=== PATIENT | male | born 1955 | race Caucasian/White ===

== ENCOUNTER → 2020-03-11 | Outpatient (CLI) | payer OTHER, MEDICARE ==
[~2020-03-11] MED LIST: ALDACTONE25 MG PO; ASPIR 8181 MG PO; COREG25 MG PO; LISINOPRIL20 MG PO; PRAVACHOL20 MG PO
== END ==
LOC: SJCVC 12:43
PROVIDERS: ATTEND Internal Medicine
DX: Z45.02 Encounter for adjustment and management of automatic implantable cardiac defibrillator (principal); R94.31 Abnormal electrocardiogram [ECG] [EKG]; I49.1 Atrial premature depolarization; I42.9 Cardiomyopathy, unspecified; I46.9 Cardiac arrest, cause unspecified; E78.5 Hyperlipidemia, unspecified; Z95.810 Presence of automatic (implantable) cardiac defibrillator; Z79.899 Other long term (current) drug therapy

== ENCOUNTER 2020-06-13 15:46 | Inpatient (IN) | payer OTHER, MEDICARE ==
[~2020-06-13] VITALS: Ht 170.2 cm; Wt 78.0 kg
--- NOTE | ~2020-06-13 | P ---
[facility] [place] [address] PROCEDURE REPORT Name: DANE LORENZO Room #: 217-P [facility] IN M.R.#: [id number] Admission: 06/13/20 Attend Phys: Cliff Santos Dae Discharge: 06/14/20 Date of : 55 Report #: [id number] THIS REPORT FOR: cc: Rolando Stahl MD, Samuel D. MD [facility] no [facility] ~ DATE OF SERVICE: 06/14/2020 ICD GENERATOR EXCHANGE PREOPERATIVE DIAGNOSIS: Premature Bi-V ICD battery depletion. POSTOPERATIVE DIAGNOSIS: Premature Bi-V ICD battery depletion. HISTORY: The patient is a 65-year-old with a history of nonischemic cardiomyopathy, left bundle-branch block and prior cardiac arrest, status post biventricular ICD implantation. We recently received an alert that he was having premature battery depletion on a known [employer] ICD with history of battery issues. He is here for ICD generator exchange. ____ found to be functioning normally and was placed in the pocket. Pocket was irrigated with vancomycin. Pocket was closed in 3 layers. Surgical glue was placed to outer skin layer. The patient awoke neurologically and hemodynamically intact. No complications and no significant bleeding. The explanted device that was malfunctioned was a [employer], model #15307K, serial #[id number]. Implant date was 10/25/2014. The newly implanted device was a [employer] Un[employer] Assura, model #877232F, serial #[id number]. Atrial lead was a [employer] 83787W, 52 cm, serial #[id number], implanted on 09/24/2018. RV lead was a [employer] Durata, model #7120, serial #[id number], implanted on 09/24/2008 and the LV lead was a [employer], model #1156, 86 cm, serial #[id number], implanted on 09/24/2008. Atrial lead demonstrated a P-wave of 3.7 millivolts, pacing impedance of 410 ohms and a pacing threshold of 0.75 volts at 0.5 milliseconds. RV lead demonstrated R waves of 8 millivolts, pacing impedance of 410 ohms and a pacing threshold of 1 volt at 0.5 milliseconds. LV lead demonstrated a pacing impedance of 490 ohms and a pacing threshold of 0.75 volts at 0.5 milliseconds. The device was programmed to the DDD 60-130 mode. The VT monitor zone was set for 160-180, VT zone was set for 180-215 and the VF zone was greater than 215 beats per minute and the VT zone, patient received 3 rounds of ATP followed by max output shocks. VF zone received ATP while charging followed by max output shocks. CONCLUSIONS: 1. Successful Bi-V ICD generator exchange. [facility] [address] [place] [address] PROCEDURE REPORT Name: DANE LORENZO PATI Room #: 217-P [facility] IN M.R.#: [id number] Admission: 06/13/20 Attend Phys: Cliff Pearl Discharge: 06/14/20 Date of : 55 Report #: [id number] 2. Satisfactory atrial, right ventricular and left ventricular pacing and sensing thresholds. By: 1134 [id number] Dax Summers MD /nt
[2020-06-13 15:54] VITALS: BP 136/70
[2020-06-13 16:21] LABS: ABSOLUTE NEUTROPHILS 4.5 thou/uL (1.4-8.2); BASOPHILS 0.9 % (0.0-2.0); EOSINOPHILS 1.8 % (0.0-3.0); HEMATOCRIT 45.1 % (42.0-52.0); HEMOGLOBIN 15.4 gm/dL (14.0-18.0); MCH 32.6 pg (26.0-34.0); MCV 95.7 fL (80.0-100.0); MONOCYTES 8.2 % (1.0-8.0); PLATELET COUNT 235 thou/uL (150-400); POLYS 64.1 % (36.0-66.0); RBC 4.72 mil/uL (4.50-6.00); RDW 12.6 % (10.5-14.5); WBC 7.1 thou/uL (4.0-11.0)
[2020-06-13 16:29] LABS: CALCIUM 8.8 mg/dL (8.5-10.1); CREATININE 1.1 mg/dL (0.7-1.3); POTASSIUM 4.3 mmol/L (3.5-5.1)
[2020-06-13 16:34] LABS: APTT 24.5 Seconds (24.5-32.8); PROTIME 10.2 Seconds (9.3-11.4)
[2020-06-13 16:36] LABS: ALBUMIN 4.1 g/dL (3.4-5.0); TOTAL BILIRUBIN 0.5 mg/dL (0.2-1.0); TOTAL PROTEIN 7.4 g/dL (6.4-8.2)
[2020-06-13 17:11] VITALS: BP 136/70
[2020-06-13 18:00] VITALS: BP 130/62
[2020-06-13 18:25] VITALS: BP 144/66
--- NOTE | 2020-06-13 18:37 | NUR ---
PT RECEIVED FROM ER TO ROOM 217 VIA AT 1805. PT SITTING IN CHAIR WITH NO DIFFICULTY. CONTINUOUS CARDIAC MONITORING INITIATED. VS TAKEN AND NOTED. PT STATES HE IS HERE BECAUSE HIS PACEMAKER BATTERY IS COMPLETELY AND IT NEEDS TO BE CHANGED. PT DENIES ANY DISCOMFORT OR PROBLEMS AT THIS TIME.
[2020-06-13 23:24] VITALS: BP 111/56
--- NOTE | 2020-06-14 03:26 | NUR ---
CARE ASSUMED 1900. PT ALERT AND ORIENTED , VITALS STABLE. DENIES CHEST DISCOMFORT NAUSEA OR VOMITING. ADMISSION COMPLETED, AND CONSENT FORMS SIGNED. NPO SINCE MIDNIGHT. PT IS SR, 1AVB w BBB, TO SB INTO 40s. DENIES ANY LIGHT HEADEDED OR SYNCOPE LIKE EPISIDE. BUT RESTING COMFORTABLE AND PLAN TO HAVE AICD BATTERY REPLACED TODAY. WILL CONTINUE TO MONITOR AND FOLLOW POC.
[2020-06-14 05:21] VITALS: BP 133/73
--- NOTE | 2020-06-14 07:16 | EKG ---
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: TESSIE : 1955 Requested By: Lewis Alexandra Order Number: [id number] MD: Chun Negro Measurements Intervals Napoleon Rate: 70 P: 49 OR: 187 QRS: -74 QRSD: 151 T: 68 QT: 444 QTc: 480 Interpretive Statements Sinus rhythm LBBB Left ventricular hypertrophy Compared to ECG 09/25/2008 08:15:03 Intraventricular conduction delay now present Ventricular-paced complex(es) or rhythm no longer present Electronically Signed On 06-14-2020 7:15:54 [facility] by Chun Negro [email or web address] <ELECTRONICALLY SIGNED> By: Chun Negro MD, [facility] 06/14/20 0715 1601 1601 Chun Negro MD, [facility] /EPI
[2020-06-14 08:20] VITALS: BP 143/74
--- NOTE | 2020-06-14 09:49 | NUR ---
PT. 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 STABLE FOR TRANSFER DENIED ANY PAIN, NO SOB. 1ST DEGREE AVB WITH BBB AND SB ALL AM.
[2020-06-14 14:19] VITALS: BP 143/74
== END 2020-06-14 15:44 | disposition home or self-care (01) | DRG 245 ==
LOC: ER 15:46 → EROBS 16:49 → 2N 16:49
PROVIDERS: Emergency Medicine; ADMIT Hospitalist; ATTEND Hospitalist
PROC: 0JPT0PZ Removal of Cardiac Rhythm Related Device from Trunk Subcutaneous Tissue and Fascia, Open Approach (ICD-10-PCS; principal; 2020-06-14)
PROC: 0JH608Z Insertion of Defibrillator Generator into Chest Subcutaneous Tissue and Fascia, Open Approach (ICD-10-PCS; principal; 2020-06-14)
DX: T82.111A Breakdown (mechanical) of cardiac pulse generator (battery), initial encounter (principal); I42.8 Other cardiomyopathies; I10 Essential (primary) hypertension; E78.5 Hyperlipidemia, unspecified; Z20.822 Contact with and (suspected) exposure to COVID-19; Z95.0 Presence of cardiac pacemaker; Z79.82 Long term (current) use of aspirin; Z79.899 Other long term (current) drug therapy
CPT/HCPCS: 10081; 62110; 62900; 70005

== ENCOUNTER → 2020-06-13 | Outpatient (CLI) | payer OTHER, MEDICARE | LOC: SJCVC 14:30 | PROVIDERS: ATTEND Internal Medicine Cardiovascular Disease | DX: R94.31 Abnormal electrocardiogram [ECG] [EKG] (principal); I45.4 Nonspecific intraventricular block; T82.111A Breakdown (mechanical) of cardiac pulse generator (battery), initial encounter; I42.8 Other cardiomyopathies; E78.5 Hyperlipidemia, unspecified; Z95.810 Presence of automatic (implantable) cardiac defibrillator; Z98.890 Other specified postprocedural states; Z79.82 Long term (current) use of aspirin; Z79.899 Other long term (current) drug therapy; Y83.8 Other surgical procedures as the cause of abnormal reaction of the patient, or of later complication, without mention of misadventure at the time of the procedure; Y92.89 Other specified places as the place of occurrence of the external cause ==

== ENCOUNTER → 2021-04-08 | Outpatient (CLI) | payer OTHER, MEDICARE | LOC: SJCVCIMAG 13:01 | PROVIDERS: ATTEND Internal Medicine | DX: R94.31 Abnormal electrocardiogram [ECG] [EKG] (principal); I42.9 Cardiomyopathy, unspecified; I46.9 Cardiac arrest, cause unspecified; E78.5 Hyperlipidemia, unspecified; Z95.810 Presence of automatic (implantable) cardiac defibrillator; Z79.82 Long term (current) use of aspirin; Z79.899 Other long term (current) drug therapy ==